=== PATIENT | male | born 1965 | race Asian ===

== ENCOUNTER 2022-11-11 10:42 | Emergency (ER) | payer SELFPAY ==
[~2022-11-11 10:42] MED LIST: Iopamidol 370 76% 100 ML VIAL ONE
[2022-11-11 11:45] LABS: #Monocytes 0.5 10x3/uL (0.0-1.1); #Neutrophils 4.2 10x3/uL (1.5-8.4); %Basophils 0.5 % (0.0-2.0); %Eosinophils 0.3 % (0.0-6.0); %Lymphocytes 22.7 % (18.0-47.0); %Neutrophils 68.2 % (40.0-75.0); Hemoglobin 16.2 g/dL (13.5-17.5); Mean Corpuscular HGB CONC 34.5 g/dL (32.0-36.0); Mean Corpuscular Hemoglobin 27.2 pg (27.0-33.0); Mean Corpuscular Volume 78.9 fl (81.2-95.1); Mean Platelet Volume 12.2 fl (7.4-10.4); Platelet Count 164 10x3/uL (150-450); RBC Distribution Width 15.4 % (11.5-14.5); Red Blood Cell (RBC) Count 5.96 10x6/uL (4.32-5.72); White Blood Cell (WBC) Count 6.2 10x3/uL (3.5-10.5)
[2022-11-11 11:52] LABS: ALT (SGPT) 89 U/L (8-55); AST (SGOT) 171 U/L (5-34); Albumin 3.3 g/dL (3.5-5.0); Alkaline Phosphatase 266 U/L (40-110); Anion Gap 14 mmol/L (10-20); BUN (Urea Nitrogen) 13 mg/dL (8.4-25.7); Bilirubin, Total 3.2 mg/dL (0.2-1.2); Calc. Creatinine Clearance 0 mL/min (70-130); Calcium 8.7 mg/dL (7.8-10.44); Carbon Dioxide 19 mmol/L (22-29); Chloride 98 mmol/L (98-107); Estimated GFR 85; Globulin 5.8 g/dL (2.4-3.5); Glucose 172 mg/dL (70-105); Potassium 3.7 mmol/L (3.5-5.1); Protein, Total 9.1 g/dL (6.0-8.3); Sodium 127 mmol/L (136-145)
[2022-11-11 13:28] LABS: Bilirubin Neg (Negative); Blood, Urine Negative (Negative); Clarity Clear (Clear); Glucose, Urine (Dipstick) Normal (Negative); Ketone, Urine Negative (Negative); Leukocyte Negative (Negative); Nitrite Negative (Negative); Protein, Urine (Dipstick) Negative (Neg-Trace); Specific Gravity, Urine 1.005 (1.005-1.030); Urobilinogen Normal mg/dL (Less than 2); pH, Urine 6.5 (5.0-9.0)
[2022-11-11 13:37] LABS: Bacteria/HPF Rare-Few HPF (None Seen); CAUTI Indications for Culture Pelvic or flank pain; RBC/HPF None Seen HPF (0-3); Squamous Epithelial 0-3 HPF (0-3); WBC/HPF 0-3 HPF (0-3)
[2022-11-11 13:39] LABS: Urine Culture Reflex No No
== END 2022-11-11 18:25 | disposition short-term general hospital (02) ==
LOC: CSHERS 10:42
DX: C22.9 Malignant neoplasm of liver, not specified as primary or secondary (principal); K80.20 Calculus of gallbladder without cholecystitis without obstruction; E87.1 Hypo-osmolality and hyponatremia; R16.1 Splenomegaly, not elsewhere classified; I87.8 Other specified disorders of veins; F17.290 Nicotine dependence, other tobacco product, uncomplicated
CPT/HCPCS: 74170; 76705; 80053; 80074; 81001; 83690; 85025; 96360; 96361; Q9967

== ENCOUNTER 2023-03-08 08:49 | Outpatient (CLI) | payer OTHER | END 2023-03-08 08:50 | disposition home or self-care (01) | LOC: CSHCT 08:49 | PROVIDERS: ATTEND Internal Medicine Hematology & Oncology | DX: C22.0 Liver cell carcinoma (principal); I81 Portal vein thrombosis; R16.1 Splenomegaly, not elsewhere classified; R59.0 Localized enlarged lymph nodes; I51.7 Cardiomegaly; K63.9 Disease of intestine, unspecified | CPT/HCPCS: 71260; 74177; 82565 ==

== ENCOUNTER 2023-06-02 08:17 | Outpatient (CLI) | payer OTHER ==
[2023-06-02] MEDS ORDERED: Iopamidol 300 61% 100 ML VIAL FS ONE (10:40)
== END 2023-06-02 08:18 | disposition home or self-care (01) ==
LOC: CSHCT 08:17
PROVIDERS: ATTEND Internal Medicine Hematology & Oncology
DX: C22.0 Liver cell carcinoma (principal); R16.1 Splenomegaly, not elsewhere classified; R59.0 Localized enlarged lymph nodes; I51.7 Cardiomegaly; E27.8 Other specified disorders of adrenal gland; K80.20 Calculus of gallbladder without cholecystitis without obstruction
CPT/HCPCS: 71260; 74177; 82565; Q9967